=== PATIENT | male | born 1940 | race Caucasian/White ===

== ENCOUNTER → 2017-10-19 | Outpatient (CLI) | payer MEDICARE ==
--- NOTE | 2017-10-19 14:33 | Diagnostic Imaging Report ---
PROCEDURE: X-RAY CHEST, TWO VIEWS COMPARISON: Patients [facility], DX, RIBS BILAT W/CXR, 06/17/2016, 13:40. INDICATIONS: COUGH FINDINGS: LUNGS: Stable hyperinflation. No mass or infiltrate. Vascular markings are normal. PLEURA: No effusions or pneumothorax. HEART \T\ MEDIASTINUM: Mildly enlarged. Pacer/defibrillator wires are stable. No hilar lymphadenopathy. BONES \T\ SOFT TISSUES: Diffuse demineralization. Stable degenerative changes of the spine. No focal osseous lesions. CONCLUSION: Stable pulmonary hyperinflation and mild cardiomegaly. No acute thoracic abnormality. Dictated by: Maribeth Ndiaye M.D. on 10/19/2017 at 14:33 Electronically approved by: Maribeth Ndiaye M.D. on 10/19/2017 at 14:33
== END ==
LOC: RAD 12:54
DX: R05 Cough (principal)
CPT/HCPCS: 71046

== ENCOUNTER → 2021-03-18 | Outpatient (CLI) | payer MEDICARE | LOC: RAD 15:29 | DX: M79.672 Pain in left foot (principal) ==

== ENCOUNTER → 2022-03-03 | Outpatient (CLI) | payer MEDICARE | LOC: RAD 11:56 | DX: R09.89 Other specified symptoms and signs involving the circulatory and respiratory systems (principal) | CPT/HCPCS: 71046 ==

== ENCOUNTER → 2024-11-04 | Outpatient (REF) | payer MEDICARE | LOC: RAD 09:33 | PROVIDERS: ATTEND Internal Medicine | DX: R05.3 Chronic cough (principal); Z87.891 Personal history of nicotine dependence | CPT/HCPCS: 71046 ==